=== PATIENT | male | born 1985 | race Caucasian/White ===

== ENCOUNTER 2019-03-15 21:36 | Emergency (ER) | payer SELFPAY ==
--- NOTE | 2019-03-15 22:08 | EDM.PDOC ---
ED HPI GENERAL MEDICAL PROBLEM - General Chief Complaint: Skin Complaint Stated Complaint: LUMP ON BUTTOCKS AND FEVER Time Seen by Provider: 03/15/19 22:07 - History of Present Illness INITIAL COMMENTS - FREE TEXT/NARRATIVE: 33-year-old male presents to the emergency room with a lump developing on his left Buttocks. He also thought maybe he was getting some fevers. The patient injects himself every other day with testosterone. A recently injected in the site. He is starting to notice some discomfort in this area. Other than this is getting along with his activities of daily living without any difficulty.. He does not have a local physician. Left Buttock Pain Score (Numeric/FACES): 7 - Related Data Allergies Allergy/AdvReac Type Severity Reaction Status Date / Time No Known Allergies Allergy Verified 03/15/19 22:05 Home Meds: Home Meds . [No Known Home Meds] 03/15/19 [History] ED ROS GENERAL - Review of Systems Review Of Systems: See Below Constitutional: Reports: Fever (Possible). Denies: Chills Respiratory: Reports: No Symptoms Cardiovascular: Reports: No Symptoms GI/Abdominal: Reports: No Symptoms Skin: Reports: Other (See history of present illness) ED EXAM, SKIN/RASH Exam: See Below Exam Limited By: No Limitations General Appearance: Alert, No Apparent Distress Head: Atraumatic, Normocephalic Neck: Normal Inspection, Supple, Non-Tender, Full Range of Motion Respiratory/Chest: No Respiratory Distress, Lungs Clear, Normal Breath Sounds, No Accessory Muscle Use, Chest Non-Tender Cardiovascular: Normal Peripheral Pulses, Regular Rate, Rhythm, No Edema, No Gallop, No JVD, No Murmur, No Rub GI/Abdominal: Normal Bowel Sounds, Soft, Non-Tender Back Exam: Other (Semination left gluteus shows some erythema minimal warmth minimal swelling. There is certainly nothing to drain at this point) Course - Vital Signs Last Recorded V/S: Last Vital Signs Temp 36.8 C 03/15/19 22:02 Pulse 89 03/15/19 22:02 Resp 18 03/15/19 22:02 BP 148/75 H 03/15/19 22:02 Pulse Ox 98 03/15/19 22:02 - Orders/Labs/Meds Labs: Laboratory Tests 03/15/19 03/15/19 Range/Units 22:30 22:30 WBC 13.46 H (4.23-9.07) K/mm3 RBC 5.00 (4.63-6.08) M/mm3 Hgb 15.4 (13.7-17.5) gm/dl Hct 46.9 (40.1-51.0) % MCV 93.8 H (79.0-92.2) fl MCH 30.8 (25.7-32.2) pg MCHC 32.8 (32.2-35.5) g/dl RDW Std Deviation 43.1 (35.1-43.9) fL Plt Count 252 (163-337) K/mm3 MPV 9.7 (9.4-12.3) fl Neutrophils % (Manual) 75 H (40-60) % Band Neutrophils % 1 (0-10) % Lymphocytes % (Manual) 20 (20-40) % Atypical Lymphs % 0 % Monocytes % (Manual) 1 L (2-10) % Eosinophils % (Manual) 2 (0.8-7.0) % Basophils % (Manual) 1 (0.2-1.2) Platelet Estimate Adequate RBC Morph Comment Normal C-Reactive Protein 1.5 H* (<1.0) mg/dL - Re-Assessments/Exams Free Text/Narrative Re-Assessment/Exam: 03/15/19 23:51 Minimally elevated white count and minimally elevated C-reactive protein. Discussed the case with Dr. Turcios will follow up with the patient early this next week. Departure - Departure Time of Disposition: 23:51 Disposition: Home, Self-Care 01 Clinical Impression: Abscess, Cellulitis - Discharge Information Referrals: PCP,None [Primary Care Provider] - Tay Turcios MD [Physician] - Forms: ED Department Discharge Additional Instructions: Return to the emergency room with any questions problems worsening symptoms. Follow-up with Dr. Turcios on Sunday or Sunday. In some warm Epsom salts solution soak your bottom for 30 minutes 2-3 times a day. From the machine in the waiting room you have been given a prescription for clindamycin 300 mg #40 take 1 4 times a day until all gone
== END 2019-03-16 00:17 | disposition home or self-care (01) ==
LOC: JD.ED 21:36
DX: L02.31 Cutaneous abscess of buttock (principal); L03.317 Cellulitis of buttock
CPT/HCPCS: 36415; 85007; 85027; 86140; 99283

== ENCOUNTER 2020-01-18 22:07 | Emergency (ER) | payer SELFPAY ==
[2020-01-18] MEDS ORDERED: LORazepam 2 MG/ML SDV IVPUSH ONE (23:13)
[2020-01-18] MEDS ORDERED: Labetalol 100 MG/20 ML MDV IVPUSH ONE (23:13)
[2020-01-18] MEDS ORDERED: Sodium Chloride 0.9% 10 ML Syringe FLUSH PRN (23:13)
--- NOTE | 2020-01-18 23:14 | EDM.PDOC ---
ED HPI GENERAL MEDICAL PROBLEM - General Chief Complaint: Chest Pain Stated Complaint: CHEST PAIN/HIGH BP/SHAKING Time Seen by Provider: 01/18/20 23:02 Source of Information: Reports: Patient, RN Notes Reviewed - History of Present Illness INITIAL COMMENTS - FREE TEXT/NARRATIVE: 34 yr old male with palpiations, dizziness, Htn at home, now feeling somewhat better but still having palpitations on arrival to ED. No Min, chest pain at time of eval. No cough, dyspnea, fever or chills. No abd pain, nausea or vomiting. Hx of borderline Htn. - Related Data Allergies Allergy/AdvReac Type Severity Reaction Status Date / Time No Known Allergies Allergy Verified 01/18/20 22:15 Home Meds: Home Meds lisinopriL [Lisinopril] 10 mg PO DAILY #30 tablet 01/19/20 [Rx] Past Medical History Endocrine/Metabolic History: Reports: Other (See Below) Other Endocrine/Metabolic History: low testosterone Hematologic History: Reports: Other (See Below) - Infectious Disease History Infectious Disease History: Reports: Chicken Pox - Past Surgical History HEENT Surgical History: Reports: Oral Surgery Social & Family History - Family History Family Medical History: Noncontributory - Tobacco Use Smoking Status *Q: Never Smoker Second Hand Smoke Exposure: No - Caffeine Use Caffeine Use: Reports: Coffee - Recreational Drug Use Recreational Drug Use: No ED ROS GENERAL - Review of Systems Review Of Systems: See Below Constitutional: Denies: Fever, Chills, Diaphoresis HEENT: Reports: No Symptoms Respiratory: Denies: Shortness of Breath, Cough Cardiovascular: Reports: Lightheadedness, Palpitations. Denies: Chest Pain GI/Abdominal: Denies: Abdominal Pain, Nausea, Vomiting Musculoskeletal: Denies: Shoulder Pain, Arm Pain, Back Pain Skin: Denies: Rash Neurological: Reports: Dizziness, Numbness (now gone). Denies: Headache, Trouble Speaking, Difficulty Walking ED EXAM, GENERAL - Physical Exam Exam: See Below General Appearance: Alert, Anxious, Mild Distress Eye Exam: Bilateral Eye: PERRL Throat/Mouth: Normal Inspection, Normal Oropharynx Head: Atraumatic Neck: Supple Respiratory/Chest: No Respiratory Distress, Lungs Clear, Normal Breath Sounds Cardiovascular: Tachycardia GI/Abdominal: Soft, Non-Tender Extremities: Normal Inspection, Normal Range of Motion Neurological: Alert, Oriented, No Motor/Sensory Deficits Skin Exam: Warm, Dry, No Rash EKG INTERPRETATION EKG Date: 01/18/20 Rhythm: Other (sinus tachycardia) Rate (Beats/Min): 106 Murray: Normal P-Wave: Present QRS: Normal ST-T: Normal Course - Vital Signs Last Recorded V/S: Last Vital Signs Temp 97.6 F 01/18/20 22:12 Pulse 118 H 01/18/20 22:12 Resp 16 01/18/20 22:12 BP 160/96 H 01/19/20 00:38 Pulse Ox 97 01/18/20 22:12 - Orders/Labs/Meds Orders: Active Orders 24 hr Category Date Time Status Peripheral IV Insertion Adult [OM.PC] Stat Oth 01/18/20 23:12 Ordered Labs: Laboratory Tests 01/18/20 01/18/20 Range/Units 22:18 22:18 WBC 9.46 H (4.23-9.07) K/mm3 RBC 5.48 (4.63-6.08) M/mm3 Hgb 17.4 D (13.7-17.5) gm/dl Hct 51.3 H (40.1-51.0) % MCV 93.6 H (79.0-92.2) fl MCH 31.8 (25.7-32.2) pg MCHC 33.9 (32.2-35.5) g/dl RDW Std Deviation 42.7 (35.1-43.9) fL Plt Count 302 (163-337) K/mm3 MPV 10.4 (9.4-12.3) fl Neut % (Auto) 48.2 (34.0-67.9) % Lymph % (Auto) 39.9 (21.8-53.1) % [place] % (Auto) 9.6 (5.3-12.2) % Eos % (Auto) 1.2 (0.8-7.0) Baso % (Auto) 1.0 (0.1-1.2) % Neut # (Auto) 4.57 (1.78-5.38) K/mm3 Lymph # (Auto) 3.77 H (1.32-3.57) K/mm3 [place] # (Auto) 0.91 H (0.30-0.82) K/mm3 Eos # (Auto) 0.11 (0.04-0.54) K/mm3 Baso # (Auto) 0.09 H (0.01-0.08) K/mm3 Sodium 141 (136-145) mEq/L Potassium 3.4 L (3.5-5.1) mEq/L Chloride 103 (98-107) mEq/L Carbon Dioxide 27 (21-32) mEq/L Anion Gap 14.4 (5-15) BUN 20 H (7-18) mg/dL Creatinine 1.2 (0.7-1.3) mg/dL Est Cr Clr Drug Dosing 91.25 mL/min Estimated GFR (MDRD) > 60 (>60) mL/min BUN/Creatinine Ratio 16.7 (14-18) Glucose 118 H (74-106) mg/dL Calcium 9.2 (8.5-10.1) mg/dL Total Bilirubin 0.3 (0.2-1.0) mg/dL AST 28 (15-37) U/L ALT 41 (16-63) U/L Alkaline Phosphatase 48 (46-116) U/L Troponin I < 0.017 (0.00-0.056) ng/mL Total Protein 8.0 (6.4-8.2) g/dl Albumin 4.5 (3.4-5.0) g/dl Globulin 3.5 gm/dL Albumin/Globulin Ratio 1.3 (1-2) Meds: Medications Discontinued Medications Generic Name Dose Route Start Last Admin Trade Name Freq PRN Reason Stop Dose Admin Acetaminophen 975 mg 01/19/20 00:34 01/19/20 00:37 Tylenol PO 01/19/20 00:35 Not Given NOW ONE Al Hydroxide/Mg Hydroxide 30 0 ml 01/18/20 23:41 ml/ Lidocaine HCl 15 ml PO 01/18/20 23:42 ONETIME ONE Al Hydroxide/Mg Hydroxide 30 0 ml 01/18/20 23:42 01/18/20 23:47 ml/ Lidocaine HCl 15 ml PO 01/18/20 23:43 45 ml ONETIME ONE Administration Labetalol HCl 20 mg 01/18/20 23:13 01/18/20 23:22 Normodyne IVPUSH 01/18/20 23:14 20 mg ONETIME ONE Administration Protocol Lisinopril 10 mg 01/19/20 00:30 01/19/20 00:38 Prinivil PO 10 mg DAILY MEG Administration Lorazepam 1 mg 01/18/20 23:13 01/18/20 23:26 Ativan IVPUSH 01/18/20 23:14 1 mg ONETIME ONE Administration Sodium Chloride 10 ml 01/18/20 23:13 01/18/20 23:28 Saline Flush FLUSH 10 ml ASDIRECTED PRN Administration Keep Vein Open - Re-Assessments/Exams Free Text/Narrative Re-Assessment/Exam: 01/19/20 02:17 BP and heart rate came down with labetalol 20 mg IV, ativan 1 mg IV, will start on lisinopril 10 mg daily. discharge instr. as documented. Departure - Departure Time of Disposition: 00:35 Disposition: Home, Self-Care 01 Condition: Fair Clinical Impression: Hypertension, Atypical chest pain, Palpitations Prescriptions: lisinopriL [Lisinopril] 10 mg PO DAILY #30 tablet Instructions: Nonspecific Chest Pain, Adult, Hypertension, Adult Referrals: PCP,None [Primary Care Provider] - Forms: ED Department Discharge Additional Instructions: Lisinopril 10 mg daily. You have been given your first dose here in the ED. Prescription has been sent to [facility]. Continue to check BP frequently. See a medical provider in the next 1 to 2 weeks for a complete physical. Return to ED as needed. Sepsis Event Note (ED) - Evaluation Sepsis Screening Result: No Definite Risk - Focused Exam Vital Signs: Vital Signs Temp Pulse Resp BP Pulse Ox 01/19/20 00:38 160/96 H 01/18/20 22:12 97.6 F 118 H 16 97 - My Orders Last 24 Hours: My Active Orders 01/18/20 23:12 Peripheral IV Insertion Adult [OM.PC] Stat - Assessment/Plan Last 24 Hours: My Active Orders 01/18/20 23:12 Peripheral IV Insertion Adult [OM.PC] Stat
[2020-01-18] MEDS ORDERED: Alum Hydrox/Mag Hydrox/Simeth 30 ML, Lidocaine 2% 15 ML PO ONE ×4 (23:41→23:42)
[2020-01-19] MEDS ORDERED: Lisinopril 10 MG Tab PO SCH (00:30)
[2020-01-19] MEDS ORDERED: Acetaminophen 325 MG Tab PO ONE (00:34)
== END 2020-01-19 00:53 | disposition home or self-care (01) ==
LOC: JD.ED 22:07
DX: R07.89 Other chest pain (principal); R00.2 Palpitations; I10 Essential (primary) hypertension; Z79.899 Other long term (current) drug therapy
CPT/HCPCS: 36415; 80053; 84484; 85025; 93005; 96374; 96375; 99285; A9270; J2060; J3490; 93010; 99283

== ENCOUNTER 2020-11-11 21:21 | Emergency (ER) | payer BC ==
--- NOTE | 2020-11-11 23:27 | EDM.PDOC ---
ED HPI GENERAL MEDICAL PROBLEM - General Chief Complaint: Respiratory Problem Stated Complaint: COUGH AND FEVER Time Seen by Provider: 11/11/20 23:01 Source of Information: Reports: Patient History Limitations: Reports: No Limitations - History of Present Illness INITIAL COMMENTS - FREE TEXT/NARRATIVE: Mr. Mayer is a very pleasant 35-year-old gentleman who now presents the ED stating that he developed a nonproductive cough this past 11/08/2020, followed by a fever, with a T-max of 101.6 degrees, along with chills, chest tightness, body aches, dyspnea, and diaphoresis today. No wheezing. His symptoms are not positional. He denies associated nasal congestion, rhinorrhea, or a sore throat. No associated nausea, vomiting, constipation, or diarrhea. He states that he has been taking an [id number] cold and sinus medicine, along with cough drops, which have not helped. No similarly ill contacts. Here in the ED, the patient's initial BP is found to be elevated 166/92, otherwise, he is hemodynamically stable, afebrile, saturating 96% on room air. He appears to be fatigued, but in no acute distress. Prior to Sunday, the patient denies having a recent fever, chills, sore throat, ear pain, nasal or sinus congestion, cough, dyspnea, chest pain, palpitations, nausea, vomiting, constipation, diarrhea, abdominal pain, urinary symptoms, recent weight gain or weight loss, recent bloody bowel movements or black bowel movements, recent joint aches, headaches, or rashes. The patient has not received a COVID vaccination. The patient does not have a PCP. - Related Data Allergies Allergy/AdvReac Type Severity Reaction Status Date / Time No Known Allergies Allergy Verified 11/11/20 21:30 Home Meds: Home Meds Codeine/Promethazine [Phenergan with Codeine] 5 ml PO Q4HR PRN #120 ml 11/12/20 [Rx] Past Medical History Endocrine/Metabolic History: Reports: Obesity/BMI 30+ - Infectious Disease History Infectious Disease History: Reports: Chicken Pox - Past Surgical History HEENT Surgical History: Reports: Oral Surgery (dental extractions) Social & Family History - Tobacco Use Tobacco Use Within Last Twelve Months: Smokeless Tobacco (Chews 1 can/day) - Caffeine Use Caffeine Use: Reports: Coffee - Alcohol Use Alcohol Use History: Yes Alcohol Use Frequency: Socially - Recreational Drug Use Recreational Drug Use: No - Living Situation & Occupation Living situation: Reports: (), Alone 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 ED EXAM, GENERAL - Physical Exam Exam: See Below Exam Limited By: No Limitations General Appearance: Alert, WD/WN, No Apparent Distress Eye Exam: Bilateral Eye: EOMI, Normal Inspection Ears: Normal External Exam, Hearing Grossly Normal Nose: Normal Inspection Throat/Mouth: Normal Inspection, Normal Lips, Normal Voice, No Airway Compromise Head: Atraumatic, Normocephalic Neck: Normal Inspection, Full Range of Motion Respiratory/Chest: No Respiratory Distress, Lungs Clear, Normal Breath Sounds, No Accessory Muscle Use, Other (Taking a deep breath induces a cough). No: Decreased Breath Sounds, Crackles, Rhonchi, Wheezing, Stridor, Prolonged Expiration Cardiovascular: Normal Peripheral Pulses, Regular Rate, Rhythm, No Edema, No Gallop, No JVD, No Murmur, No Rub Peripheral Pulses: 3+: Radial (L), Radial (R) GI/Abdominal: Normal Bowel Sounds, Soft, Non-Tender, No Organomegaly, No Disten tion, No Abnormal Bruit, No Mass Back Exam: Normal Inspection, Full Range of Motion, NT Extremities: Normal Inspection, Normal Range of Motion, No Pedal Edema, Normal Capillary Refill Neurological: Alert, Oriented, Normal Cognition, No Motor/Sensory Deficits Psychiatric: Normal Affect Skin Exam: Warm, Dry, Intact, Normal Color, No Rash Course - Vital Signs Last Recorded V/S: Last Vital Signs Temp 37.6 C 11/11/20 21:30 Pulse 96 11/11/20 21:30 Resp 15 11/11/20 21:30 BP 166/92 H 11/11/20 21:30 Pulse Ox 96 11/11/20 21:30 - Orders/Labs/Meds Labs: Laboratory Tests 11/11/20 11/11/20 11/11/20 Range/Units 23:00 23:35 23:35 WBC 6.43 (4.23-9.07) K/mm3 RBC 5.31 (4.63-6.08) M/mm3 Hgb 17.1 (13.7-17.5) gm/dl Hct 49.8 (40.1-51.0) % MCV 93.8 H (79.0-92.2) fl MCH 32.2 (25.7-32.2) pg MCHC 34.3 (32.2-35.5) g/dl RDW Std Deviation 43.0 (35.1-43.9) fL Plt Count 206 D (163-337) K/mm3 MPV 10.0 (9.4-12.3) fl Neutrophils % (Manual) 58 (40-60) % Band Neutrophils % 0 (0-10) % Lymphocytes % (Manual) 28 (20-40) % Atypical Lymphs % 0 % Monocytes % (Manual) 10 (2-10) % Eosinophils % (Manual) 3 (0.8-7.0) % Basophils % (Manual) 1 (0.2-1.2) Platelet Estimate Adequate RBC Morph Comment Normal Sodium 138 (136-145) mEq/L Potassium 3.7 (3.5-5.1) mEq/L Chloride 103 (98-107) mEq/L Carbon Dioxide 23 (21-32) mEq/L Anion Gap 15.7 H (5-15) BUN 15 (7-18) mg/dL Creatinine 1.2 (0.7-1.3) mg/dL Est Cr Clr Drug Dosing 90.41 mL/min Estimated GFR (MDRD) > 60 (>60) mL/min BUN/Creatinine Ratio 12.5 L (14-18) Glucose 127 H (70-99) mg/dL Calcium 8.4 L (8.5-10.1) mg/dL Magnesium 1.8 (1.8-2.4) mg/dL Total Bilirubin 0.1 L (0.2-1.0) mg/dL AST 27 (15-37) U/L ALT 45 (16-63) U/L Alkaline Phosphatase 51 (46-116) U/L Total Protein 7.3 (6.4-8.2) g/dl Albumin 3.9 (3.4-5.0) g/dl Globulin 3.4 gm/dL Albumin/Globulin Ratio 1.2 (1-2) Influenza Type A RNA Negative (NEGATIVE) Influenza Type B RNA Negative (NEGATIVE) SARS-CoV-2 RNA (SORAYA) Negative (NEGATIVE) - Re-Assessments/Exams Free Text/Narrative Re-Assessment/Exam: 11/11/20 23:23 As above, the patient has had a nonproductive cough since Sunday, with, dyspnea, chills, a fever up to 101.6 degrees, diaphoresis, and body aches today. An [id number] cold and sinus medicine and cough drops have not helped. Here in the ED, the patient is afebrile, saturating 96% on room air. Taking deep breaths induces a cough, however, his lungs are entirely clear to auscultation bilaterally, with the remainder of his physical exam being unremarkable. I have ordered a work-up that includes several blood tests, a chest x-ray, and a swab for the SARS-CoV-2 virus/influenza A + B viruses. 11/12/20 00:28 Two-view chest radiograph appears to be grossly normal. The cardiac silhouette is within normal limits. No pulmonary vascular congestion. No pleural effusions. No focal infiltrate. No pneumothorax. Formal read per the Radiologist pending. The patient's CBC is unremarkable. His CMP is remarkable for an anion gap slightly elevated at 15.3, but with a bicarbonate normal at 23, and mild hyperglycemia of 127, with the remainder of his CMP being unremarkable. His magnesium level is within normal limits at 1.8. His swab for the SARS-CoV-2 virus/influenza A + B viruses is negative for all. 11/12/20 00:33 Test results discussed with the patient. As above, today's work-up is completely unremarkable. He does not have pneumonia. His cough is most likely due to a viral URI. I will discharge her home with a prescription for codeine/promethazine that he can fill in the morning. Departure - Departure Time of Disposition: 00:35 Disposition: Home, Self-Care 01 Condition: Good Clinical Impression: Viral URI with cough - Discharge Information *PRESCRIPTION DRUG MONITORING PROGRAM REVIEWED*: Not Applicable *COPY OF PRESCRIPTION DRUG MONITORING REPORT IN PATIENT FELIZ: Not Applicable Prescriptions: Codeine/Promethazine [Phenergan with Codeine] 5 ml PO Q4HR PRN #120 ml PRN Reason: Cough Instructions: Viral Respiratory Infection Referrals: PCP,None [Primary Care Provider] - Forms: ED Department Discharge Additional Instructions: You were seen in the emergency room for 3 days of a dry cough with fever, chills, body aches, and shortness of breath. Work-up in the ER included several blood tests, a swab for the SARS-CoV-2 virus/influenza A + B viruses, and a chest x-ray. Your entire work-up was unremarkable. You do not have pneumonia. Your COVID test was negative. Based on your history, physical exam, and ER tests, you are most likely suffering from a viral URI. Unfortunately, there are no medicines to get rid of a viral URI - it will have to run its course. You have been provided with a prescription for the opioid cough syrup codeine with promethazine. You may take 5 mL of the cough syrup up to every 4 hours, however, you are not to drive or operate heavy machinery for 12 hours after taking it, therefore, if you are working, you should limit your intake of this medicine to before bed. Be aware that codeine may cause constipation, so consider taking a stool soften er. If any other problems, please do not hesitate to return to the ER. Sepsis Event Note (ED) - Evaluation Sepsis Screening Result: No Definite Risk - Focused Exam Vital Signs: Vital Signs Temp Pulse Resp BP Pulse Ox 11/11/20 21:30 37.6 C 96 15 166/92 H 96
[2020-11-12 00:03] LABS: CORONAVIRUS COVID-19 NAA NEGATIVE (NEGATIVE)
--- NOTE | 2020-11-12 05:57 | CR ---
Chest: 2 views of the chest were obtained. Comparison: No prior chest imaging is available. Heart size and mediastinum are within normal limits. Lungs are clear with no acute parenchymal change. No acute osseous abnormality is appreciated. Impression: 1. Nothing acute is appreciated on 2 view chest x-ray. Diagnostic code #1
== END 2020-11-12 00:45 | disposition home or self-care (01) ==
LOC: JD.ED 21:21
DX: J06.9 Acute upper respiratory infection, unspecified (principal); E66.9 Obesity, unspecified; Z68.37 Body mass index [BMI] 37.0-37.9, adult; Z20.822 Contact with and (suspected) exposure to COVID-19; Z72.0 Tobacco use
CPT/HCPCS: 0240U; 36415; 71046; 80053; 83735; 85007; 85027; 99283; 99284

== ENCOUNTER 2021-01-16 10:12 | Emergency (ER) | payer BC ==
[2021-01-16] MEDS ORDERED: Ondansetron 4 MG Tab.DIS PO ONE (11:26)
[2021-01-16] MEDS ORDERED: Ketorolac 60 MG/2 ML SDV IM ONE (11:27)
[2021-01-16] MEDS ORDERED: Iopamidol 755 Mg/ML 100 ML Bottle IVPUSH ONE (12:32)
[2021-01-16] MEDS ORDERED: Sodium Chloride 0.9% 10 ML Syringe FLUSH PRN (12:32)
[2021-01-16] MEDS ORDERED: Sodium Chloride 0.9% 45 ML IV SCH (12:45)
--- NOTE | 2021-01-16 13:04 | EDM.PDOC ---
ED HPI GENERAL MEDICAL PROBLEM - General Chief Complaint: Respiratory Problem Stated Complaint: COVID SX Time Seen by Provider: 01/16/21 11:11 Source of Information: Reports: Patient History Limitations: Reports: No Limitations, Other (ED vital signs reveal a temp of 99.4, pulse of 82, respiratory rate of 20, blood pressure 134/92, pulse ox 94% on room air) - History of Present Illness INITIAL COMMENTS - FREE TEXT/NARRATIVE: 35-year-old male presents the emergency department today with a 4-day history of fever, chills, nausea, vomiting, diarrhea, cough, shortness of breath and generalized body aches. He also states his appetite has been poor and he has not taken much in the way of food or fluids. States he did try to take some ibuprofen for the body aches and fever however this is not helped much. He has not had Covid nor has he had his Covid vaccine. He states he is otherwise healthy. He does not smoke, he denies recreational drug use, and he drinks socially. Generalized Pain Score (Numeric/FACES): 7 - Related Data Allergies Allergy/AdvReac Type Severity Reaction Status Date / Time No Known Allergies Allergy Verified 01/16/21 10:37 Home Meds: Home Meds Benzonatate [Tessalon Perle] 100 mg PO TID PRN #24 capsule 01/16/21 [Rx] Ondansetron [Zofran ODT] 4 mg PO Q6H PRN #12 tab.dis 01/16/21 [Rx] Past Medical History - Past Health History Medical/Surgical History: Denies Medical/Surgical History Cardiovascular History: Reports: Hypertension Endocrine/Metabolic History: Reports: Obesity/BMI 30+ Other Endocrine/Metabolic History: low testosterone Hematologic History: Reports: Other (See Below) - Infectious Disease History Infectious Disease History: Reports: Chicken Pox - Past Surgical History HEENT Surgical History: Reports: Oral Surgery Social & Family History - Family History Family Medical History: No Pertinent Family History - Tobacco Use Tobacco Use Status *Q: Current Every Day Tobacco User Years of Tobacco use: 15 Packs/Tins Daily: 1 - Caffeine Use Caffeine Use: Reports: Coffee, Energy Drinks, Soda - Alcohol Use Days Per Week of Alcohol Use: 2 Number of Drinks Per Day: 2 Total Drinks Per Week: 4 - Recreational Drug Use Recreational Drug Use: No - Living Situation & Occupation Living situation: Reports: (), Alone 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 ED EXAM, GENERAL - Physical Exam Exam: See Below Exam Limited By: No Limitations General Appearance: Alert, WD/WN, Mild Distress Eye Exam: Bilateral Eye: PERRL Ears: Normal External Exam, Hearing Grossly Normal Nose: Normal Inspection Throat/Mouth: Normal Inspection, Normal Lips, Normal Voice, No Airway Compromise Head: Atraumatic Neck: Normal Inspection, Supple Respiratory/Chest: No Respiratory Distress, Normal Breath Sounds, No Accessory Muscle Use, Chest Non-Tender. No: Lungs Clear (Diminished throughout) Cardiovascular: Normal Peripheral Pulses, Regular Rate, Rhythm, No Edema, No Murmur Peripheral Pulses: 2+: Radial (L), Radial (R) GI/Abdominal: Normal Bowel Sounds, Soft, Non-Tender, No Distention (Male) Exam: Deferred Rectal (Males) Exam: Deferred Back Exam: Normal Inspection Extremities: Normal Inspection, Normal Range of Motion, No Pedal Edema, Normal Capillary Refill Neurological: Alert, Oriented, Normal Cognition Psychiatric: Normal Affect Skin Exam: Warm, Dry, Intact, Normal Color, No Rash Lymphatic: No Adenopathy Course - Vital Signs Text/Narrative:: As stated above patient with 4-day history of Covid type symptoms. Patient O2 saturations are 94 to 100% on room air however he does verbally state that he is short of breath with any exertion. Upon assessment when I do have the patient take a deep breath, it does produce him to cough persistently. I have ordered a Covid swab, labs to include a CBC, CMP, magnesium, C-reactive protein, D-dimer, LDH, and ferritin levels, will obtain a portable view of the chest. I have ordered for him to receive some Zofran ODT and 60 mg of Toradol IM for the body aches. Last Recorded V/S: Last Vital Signs Temp 99.4 F 01/16/21 10:36 Pulse 82 01/16/21 10:36 Resp 20 01/16/21 10:36 BP 134/92 H 01/16/21 10:36 Pulse Ox 94 L 01/16/21 10:36 - Orders/Labs/Meds Orders: Active Orders 24 hr Category Date Time Status Sodium Chloride 0.9% [Normal Saline] 45 ml Med 01/16/21 12:45 Active IV ASDIRECTED Sodium Chloride 0.9% [Saline Flush] Med 01/16/21 12:32 Active 10 ml FLUSH ONETIME PRN Isolation [COMM] Routine Oth 01/16/21 11:58 Ordered Medication Orders Sodium Chloride (Normal Saline) 45 mls @ 40 mls/hr IV ASDIRECTED MEG Last Admin: 01/16/21 13:22 Dose: 40 mls/hr Documented by: ROSALIA Sodium Chloride (Sodium Chloride 0.9% 10 Ml Syringe) 10 ml FLUSH ONETIME PRN PRN Reason: Keep Vein Open Last Admin: 01/16/21 13:21 Dose: 10 ml Documented by: ROSALIA Labs: Laboratory Tests 01/16/21 01/16/21 01/16/21 Range/Units 10:30 11:45 11:45 WBC 5.18 (4.23-9.07) K/mm3 RBC 5.30 (4.63-6.08) M/mm3 Hgb 16.8 (13.7-17.5) gm/dl Hct 50.0 (40.1-51.0) % MCV 94.3 H (79.0-92.2) fl MCH 31.7 (25.7-32.2) pg MCHC 33.6 (32.2-35.5) g/dl RDW Std Deviation 42.6 (35.1-43.9) fL Plt Count 152 L (163-337) K/mm3 MPV 10.3 (9.4-12.3) fl Neut % (Auto) 69.3 H (34.0-67.9) % Lymph % (Auto) 23.2 (21.8-53.1) % Sargent % (Auto) 7.3 (5.3-12.2) % Eos % (Auto) 0 L (0.8-7.0) Baso % (Auto) 0.2 (0.1-1.2) % Neut # (Auto) 3.59 (1.78-5.38) K/mm3 Lymph # (Auto) 1.20 L (1.32-3.57) K/mm3 Sargent # (Auto) 0.38 (0.30-0.82) K/mm3 Eos # (Auto) 0.00 L (0.04-0.54) K/mm3 Baso # (Auto) 0.01 (0.01-0.08) K/mm3 D-Dimer, Quantitative 0.60 H (0.19-0.50) mg/L Sodium (136-145) mEq/L Potassium (3.5-5.1) mEq/L Chloride (98-107) mEq/L Carbon Dioxide (21-32) mEq/L Anion Gap (5-15) BUN (7-18) mg/dL Creatinine (0.7-1.3) mg/dL Est Cr Clr Drug Dosing mL/min Estimated GFR (MDRD) (>60) mL/min BUN/Creatinine Ratio (14-18) Glucose (70-99) mg/dL Calcium (8.5-10.1) mg/dL Magnesium (1.8-2.4) mg/dL Ferritin (26-388) ng/ml Total Bilirubin (0.2-1.0) mg/dL AST (15-37) U/L ALT (16-63) U/L Alkaline Phosphatase (46-116) U/L Lactate Dehydrogenase (85-227) U/L Troponin I (0.00-0.056) ng/mL C-Reactive Protein (<1.0) mg/dL Total Protein (6.4-8.2) g/dl Albumin (3.4-5.0) g/dl Globulin gm/dL Albumin/Globulin Ratio (1-2) SARS-CoV-2 RNA (SORAYA) Positive H (NEGATIVE) 01/16/21 01/16/21 Range/Units 11:45 11:45 WBC (4.23-9.07) K/mm3 RBC (4.63-6.08) M/mm3 Hgb (13.7-17.5) gm/dl Hct (40.1-51.0) % MCV (79.0-92.2) fl MCH (25.7-32.2) pg MCHC (32.2-35.5) g/dl RDW Std Deviation (35.1-43.9) fL Plt Count (163-337) K/mm3 MPV (9.4-12.3) fl Neut % (Auto) (34.0-67.9) % Lymph % (Auto) (21.8-53.1) % Sargent % (Auto) (5.3-12.2) % Eos % (Auto) (0.8-7.0) Baso % (Auto) (0.1-1.2) % Neut # (Auto) (1.78-5.38) K/mm3 Lymph # (Auto) (1.32-3.57) K/mm3 Sargent # (Auto) (0.30-0.82) K/mm3 Eos # (Auto) (0.04-0.54) K/mm3 Baso # (Auto) (0.01-0.08) K/mm3 D-Dimer, Quantitative (0.19-0.50) mg/L Sodium 138 (136-145) mEq/L Potassium 4.3 (3.5-5.1) mEq/L Chloride 103 (98-107) mEq/L Carbon Dioxide 29 (21-32) mEq/L Anion Gap 10.3 (5-15) BUN 14 (7-18) mg/dL Creatinine 1.2 (0.7-1.3) mg/dL Est Cr Clr Drug Dosing 90.41 mL/min Estimated GFR (MDRD) > 60 (>60) mL/min BUN/Creatinine Ratio 11.7 L (14-18) Glucose 97 (70-99) mg/dL Calcium 8.0 L (8.5-10.1) mg/dL Magnesium 1.8 (1.8-2.4) mg/dL Ferritin 731 H (26-388) ng/ml Total Bilirubin 0.3 (0.2-1.0) mg/dL AST 44 H (15-37) U/L ALT 51 (16-63) U/L Alkaline Phosphatase 34 L (46-116) U/L Lactate Dehydrogenase 322 H (85-227) U/L Troponin I < 0.017 (0.00-0.056) ng/mL C-Reactive Protein < 0.2 (<1.0) mg/dL Total Protein 7.0 (6.4-8.2) g/dl Albumin 3.5 (3.4-5.0) g/dl Globulin 3.5 gm/dL Albumin/Globulin Ratio 1.0 (1-2) SARS-CoV-2 RNA (SORAYA) (NEGATIVE) Meds: Medications Generic Name Dose Route Start Last Admin Trade Name Michell PRN Reason Stop Dose Admin Sodium Chloride 45 mls @ 40 mls/hr 01/16/21 12:45 01/16/21 13:22 Normal Saline IV 40 mls/hr ASDIRECTED MEG Administration Sodium Chloride 10 ml 01/16/21 12:32 01/16/21 13:21 Sodium Chloride 0.9% 10 Ml Syringe FLUSH 10 ml ONETIME PRN Administration Keep Vein Open Discontinued Medications Generic Name Dose Route Start Last Admin Trade Name Michell PRN Reason Stop Dose Admin Iopamidol 100 ml 01/16/21 12:32 01/16/21 13:21 Iopamidol 755 Mg/Ml 100 Ml Bottle IVPUSH 01/16/21 12:33 100 ml ONETIME ONE Administration Ketorolac Tromethamine 60 mg 01/16/21 11:27 01/16/21 11:35 Ketorolac 60 Mg/2 Ml Sdv IM 01/16/21 11:28 60 mg ONETIME ONE Administration Ondansetron HCl 4 mg 01/16/21 11:26 01/16/21 11:34 Ondansetron 4 Mg Tab.Dis PO 01/16/21 11:27 4 mg ONETIME ONE Administration - Re-Assessments/Exams Free Text/Narrative Re-Assessment/Exam: 01/16/21 11:45 D-dimer is elevated at 0.60. This is likely due to Covid however with the patient's respiratory symptoms I have elected to order a CTA of the lungs on this patient. 01/16/21 13:03 Hematology reveals a WBC of 5.18, hemoglobin 16.8, hematocrit 50.0, platelet count 152 Coagulation reveals a D-dimer of 0.60 Chemistry reveals a sodium of 138, potassium 4.3, carbon dioxide 29, anion gap 10.3, BUN 14, creatinine 1.2, glucose 97, magnesium 1.8, ferritin 731, total bilirubin 0.3, AST 44, ALT 51, alk phos 34, LDH 322, troponin less than 0.017, C-reactive protein less than 0.2 Patient is Covid positive 01/16/21 14:02 Radiologist impression portable view of the chest: 1. Focal density within the inferior right hilar region as interval change from prior chest x-ray. Most likely represents a small area pneumonia. 2. No other acute abnormality is seen Radiologist impression CT scan of the chest: 1. No findings of pulmonary embolism. 2. Areas of pneumonia most prominent within the right lung base compatible with Covid etiology. 3. Slight adenopathy within the right hilum believed to be inflammatory in etiology. Patient will be discharged home with recommendations that he use incentive spirometry 10 times while awake, respiratory therapy will instruct patient how to use. Will send a prescription for Zofran 4 mg ODT to his pharmacy for him to take every 6 hours as needed for nausea and vomiting. We will also send a prescription for Tessalon Perles for him to take up to 3 times daily for cough. We will also have nursing staff send him home with a pulse oximeter and he will be instructed to return the emergency department should his O2 sats drop below 90% at rest. Departure - Departure Time of Disposition: 14:10 Disposition: Home, Self-Care 01 Condition: Good Clinical Impression: COVID-19 - Discharge Information Prescriptions: Benzonatate [Tessalon Perle] 100 mg PO TID PRN #24 capsule PRN Reason: Cough Ondansetron [Zofran ODT] 4 mg PO Q6H PRN #12 tab.dis PRN Reason: Nausea/Vomiting Referrals: PCP,None [Primary Care Provider] - Forms: ED Department Discharge, ED Return to Work/School Form Additional Instructions: You were seen in the emergency department today with Covid type symptoms. Covid testing was completed and you are positive. Chest x-ray and CT scan of the chest were also completed. You do not have any blood clots in your lungs however you do have some pneumonia noted in your right lung, however this is due to Covid and it is viral so cannot be treated with antibiotics. I have sent prescription to your pharmacy for Zofran ODT 4 mg tab. You can take 1 of these every 6 hours as needed for nausea or vomiting. Be sure to place the tablet under your tongue and allow it to dissolve. Wait 30 minutes prior to eating or drinking after taking the medication to allow to take full effect. I have also sent a prescription for a medication called Tessalon Perles to your pharmacy. This medication is used for cough. You can take 1 tab up to 3 times daily for cough. Use your incentive spirometer and flutter valve as directed by the respiratory therapist up to 10 times per hour to keep your lungs expanded. You have been sent home with a pulse oximeter. Should you have shortness of breath, check the pulse ox after sitting AT REST FOR AT LEAST 30 MINUTES. If your oxygen level is less than 90% it is recommended that you come back to the emergency department to be reevaluated. Take Tylenol or ibuprofen per label directions for headache or generalized body aches. Drink plenty of fluids and get plenty rest. YOU NEED TO QUARANTINE FOR 10 DAYS TIME. It is strongly recommended that you get your Covid vaccination. Sepsis Event Note (ED) - Focused Exam Vital Signs: Vital Signs Temp Pulse Resp BP Pulse Ox 01/16/21 10:36 99.4 F 82 20 134/92 H 94 L - My Orders Last 24 Hours: My Active Orders 01/16/21 11:58 Isolation [COMM] Routine 01/16/21 12:32 Sodium Chloride 0.9% [Saline Flush] 10 ml FLUSH ONETIME PRN 01/16/21 12:45 Sodium Chloride 0.9% [Normal Saline] 45 ml IV ASDIRECTED - Assessment/Plan Last 24 Hours: My Active Orders 01/16/21 11:58 Isolation [COMM] Routine 01/16/21 12:32 Sodium Chloride 0.9% [Saline Flush] 10 ml FLUSH ONETIME PRN 01/16/21 12:45 Sodium Chloride 0.9% [Normal Saline] 45 ml IV ASDIRECTED
--- NOTE | 2021-01-16 13:31 | CR ---
Chest: Portable view of the chest was obtained. Comparison: Prior chest x-ray of 11/11/20. Focal density is seen within the inferior right hilar region. This presumably represents a small area of pneumonia as this is an interval change from previous study. Heart is within normal limits. Lungs otherwise are clear. Bony structures show nothing acute. Impression: 1. Focal density within the inferior right hilar region as an interval change from prior chest x-ray. This most likely represents a small area of pneumonia. 2. No other acute abnormality is seen. Diagnostic code #3
--- NOTE | 2021-01-16 13:49 | CT ---
CT chest Technique: Multiple axial sections were obtained from above the lung apices inferiorly through the lung bases. Intravenous contrast was utilized. Study has been performed as a pulmonary angiogram protocol. Comparison: Prior chest x-ray performed earlier on the same day (11:29 AM). Findings: Pulmonary arteries are well opacified. No filling defects are seen to indicate pulmonary embolism. Thoracic aorta shows no aneurysm. Mediastinum shows no adenopathy. Very slight adenopathy is noted within the right hilum presumably inflammatory in etiology. No pericardial effusion is seen. No axillary adenopathy is seen. Small portion of the visualized upper abdominal structures show nothing acute. Lung window settings were reviewed. Patchy areas of increased density are seen within the left upper lung and right upper lung as well as more consolidation within the right lung base. Lesser consolidation within the left lung base is noted. Increased density is noted within the right middle lobe. No pleural effusions are seen. Bone window settings were reviewed which show no acute osseous finding. Impression: 1. No findings of pulmonary embolism. 2. Areas of pneumonia most prominent within the right lung base compatible with COVID etiology. 3. Slight adenopathy within the right hilum believed to be inflammatory in etiology. Diagnostic code #3
--- NOTE | 2021-01-16 14:37 | PCM.EKG ---
#1 Interpretation EKG Date: 01/16/21 Time: 11:45 Rhythm: NSR Rate (Beats/Min): 83 Lester: Normal P-Wave: Present QRS: Normal ST-T: Normal QT: Normal EKG Interpretation Comments: Per Dr. Berg interpretation: Sinus rhythm at 83 bpm; borderline right axis deviation; borderline T abnormalities, inferior leads; ST elevation, probable normal early repolarization pattern; T wave depressed in lead IIInear isoelectric in aVF
== END 2021-01-16 14:29 | disposition home or self-care (01) ==
LOC: JD.ED 10:12
DX: U07.1 COVID-19 (principal); I10 Essential (primary) hypertension; E66.9 Obesity, unspecified; Z68.36 Body mass index [BMI] 36.0-36.9, adult; Z72.0 Tobacco use
CPT/HCPCS: 36415; 71045; 71275; 80053; 82728; 83615; 83735; 84484; 85025; 85379; 86140; 87635; 93005; 94667; 96372; 99284; A9270; J1885; Q9967; U0002